=== PATIENT | female | born 1960 | race African-American/Black ===

== ENCOUNTER 2016-08-18 14:55 | Emergency (ER) | payer OTHER ==
[~2016-08-18] VITALS: Ht 157.5 cm; Wt 73.0 kg
[~2016-08-18 14:55] MED LIST: BENADRYL25 MG PO; PREDNISONE 20 M20 MG PO; PROVENTIL; SYMBICORT160 MCG/4.
[2016-08-18 15:00] VITALS: BP 141/86
[2016-08-18] MEDS ORDERED: PHENTERMINE H37.5 M1 PO (15:05)
[2016-08-18] MEDS ORDERED: NORCO 5-325 TA1 EACH PO (16:14)
[2016-08-18] MEDS ORDERED: CYCLOBENZAPRINE5 MG PO (16:19)
== END 2016-08-18 16:25 | disposition home or self-care (01) ==
LOC: ER 14:55
DX: S46.011A Strain of muscle(s) and tendon(s) of the rotator cuff of right shoulder, initial encounter (principal); S46.012A Strain of muscle(s) and tendon(s) of the rotator cuff of left shoulder, initial encounter; J44.9 Chronic obstructive pulmonary disease, unspecified; G56.03 Carpal tunnel syndrome, bilateral upper limbs; F17.210 Nicotine dependence, cigarettes, uncomplicated; W18.30XA Fall on same level, unspecified, initial encounter; Y93.89 Activity, other specified; Y92.89 Other specified places as the place of occurrence of the external cause; Y99.9 Unspecified external cause status